=== PATIENT | male | born 2000 | race Caucasian/White ===

== ENCOUNTER → 2021-02-18 | Outpatient (CLI) | payer OTHER ==
--- NOTE | 2021-02-18 15:19 | REP ---
INDICATION: POLY CYSTIC OF LIVER/KIDNEY COMPARISON: None TECHNIQUE: Real time B-mode vance scale ultrasound examination using curved array transducer. FINDINGS: Liver, and pancreas are normal in contour, size, echogenicity, and overall appearance. No focal hepatic or pancreatic lesions are identified. Mildly enlarged normal appearing spleen measures 12.8 x 11.4 x 3.5 cm (splenic index 510). No focal splenic lesions are identified. Gallbladder is normal without gallstones, wall thickening, or pericholecystic fluid. No biliary ductal dilatation is appreciated and the common bile duct measures 4.4 mm in diameter. The bilateral kidneys demonstrate innumerable cysts and small presumed nonobstructing nephroliths. The right kidney measures 12.9 x 7.2 x 6.5 cm with the largest cyst measuring 2.6 cm diameter. The left kidney measures 13.4 x 6.3 x 7.2 cm with the largest cyst measuring 2.3 cm diameter. Abdominal aorta appears normal and measures 2 cm maximal diameter. No ascites. IMPRESSION: 1. Mild nonspecific splenomegaly. 2. Cystic changes to the bilateral kidneys with suspected scattered nephroliths. <Electronically signed by Meliton Charles > 02/18/21 [id number]
== END ==
LOC: M RAD 09:11
PROVIDERS: ATTEND Internal Medicine Nephrology
DX: Q61.2 Polycystic kidney, adult type (principal); Q44.6 Cystic disease of liver

== ENCOUNTER → 2021-12-04 | Outpatient (CLI) | payer OTHER ==
[2021-12-04 16:16] LABS: INR 0.89; PROTHROMBIN TIME 12.4 SECONDS (12.7-14.5)
[2021-12-04 16:26] LABS: ALBUMIN 4.8 GM/DL (3.2-5.2); ALT/SGPT 136 U/L (12-78); BILIRUBIN,DIRECT 0.1 MG/DL (0.0-0.2); BILIRUBIN,TOTAL 0.4 MG/DL (0.2-1.0); IRON (FE) 129 UG/DL (65-175); PERCENT SATURATION 31.7 % (19.7-50.0); TOTAL IRON BINDING CAPACITY 407 UG/DL (250-450); TOTAL PROTEIN 7.7 GM/DL (6.4-8.2)
[2021-12-04 16:49] LABS: HEPATITIS B SURFACE ANTIGEN NEGATIVE (NEGATIVE)
[2021-12-04 17:15] LABS: HEPATITIS B CORE ANTIBODY IGM NEGATIVE (NEGATIVE); HEPATITIS C VIRUS ABY INDEX 0.2 INDEX (<0.8)
[2021-12-09 15:08] LABS: ALPHA 1 ANTITRYPSIN 124 mg/dL (95-164); ANCA-ATYPICAL <1:20 titer (Neg:<1:20); ANTI-MITOCHONDRIAL ANTIBODY <20.0 Units (0.0-20.0); ANTINUCLEAR ANTIBODIES DIRECT Negative (Negative); CERULOPLASMIN 19.8 mg/dL (16.0-31.0); CYTOPLASMIC NEUTROP AB ANCA-C <1:20 titer (Neg:<1:20); LIVER-KIDNEY MICROSOMAL ABY <20.1 Units (0.0-20.0); PERINUCLEAR AB ANCA-P <1:20 titer (Neg:<1:20); TISSUE TRANSGLUTAMINASE IgA <2 U/mL (0-3)
== END ==
LOC: M LAB 15:18
PROVIDERS: ATTEND Internal Medicine Gastroenterology
DX: R74.8 Abnormal levels of other serum enzymes (principal)
CPT/HCPCS: 36415; 80076; 82103; 82390; 82784; 83550; 85610; 86037; 86038; 86255; 86364; 86376; 86705; 86709; 86803; 87340; G0463

== ENCOUNTER → 2022-01-09 | Outpatient (CLI) | payer OTHER | LOC: M RAD 08:52 | PROVIDERS: ATTEND Internal Medicine Gastroenterology | DX: R74.01 Elevation of levels of liver transaminase levels (principal) ==

== ENCOUNTER → 2022-02-26 | Outpatient (CLI) | payer OTHER | LOC: M RAD 08:08 | PROVIDERS: ATTEND Internal Medicine Gastroenterology | DX: K76.0 Fatty (change of) liver, not elsewhere classified (principal); R74.8 Abnormal levels of other serum enzymes ==